=== PATIENT | female | born 1945 | race Caucasian/White ===

== ENCOUNTER 2017-07-13 08:36 | Emergency (ER) | payer MEDICAID | END 2017-07-13 13:00 | disposition home or self-care (01) | LOC: FTE 08:36 | DX: J44.0 Chronic obstructive pulmonary disease with (acute) lower respiratory infection (principal); J32.9 Chronic sinusitis, unspecified; J20.9 Acute bronchitis, unspecified | CPT/HCPCS: 71020; 93005; 99284-25 ==

== ENCOUNTER 2017-09-07 09:51 | Emergency (ER) | payer MEDICAID ==
[2017-09-07] MEDS: TETRACAINE 0.5% 4 ML OPH LEFT EYE (10:48)
== END 2017-09-07 11:15 | disposition home or self-care (01) ==
LOC: FTE 09:51
DX: H10.32 Unspecified acute conjunctivitis, left eye (principal)
CPT/HCPCS: 99283; Z7502

== ENCOUNTER 2017-09-15 08:53 | Emergency (ER) | payer MEDICAID ==
[2017-09-15] MEDS: KETOROLAC 30 MG INJ IM (10:02)
[2017-09-15 10:35] LABS: ADD UMIC NO; UR ASCORBIC ACID NEGATIVE (NEGATIVE); UR BILIRUBIN (Dip) NEGATIVE (NEGATIVE); UR BLOOD (Dip) NEGATIVE (NEGATIVE); UR CLARITY CLEAR (CLEAR); UR COLOR YELLOW (YELLOW); UR GLUCOSE (Dip) NEGATIVE (NEGATIVE); UR KETONES (Dip) NEGATIVE (NEGATIVE); UR LEUKOCYTE ESTERASE (Dip) NEGATIVE Leu/ul (NEGATIVE); UR NITRITE (Dip) NEGATIVE (NEGATIVE); UR SPECIFIC GRAVITY (Dip) 1.015 (1.003-1.030); UR TOTAL PROTEIN (Dip) NEGATIVE (NEGATIVE); UR UROBILINOGEN (Dip) NEGATIVE (NEGATIVE)
== END 2017-09-15 11:12 | disposition home or self-care (01) ==
LOC: FTE 08:53
DX: M54.5 Low back pain (principal)
CPT/HCPCS: 81003; 94644; 96372; 99284-25

== ENCOUNTER 2019-01-27 16:45 | Emergency (ER) | payer MEDICAID ==
[2019-01-27] MEDS: traMADol 50 MG TAB PO (17:48)
== END 2019-01-27 20:23 | disposition home or self-care (01) ==
LOC: FTE 16:45
DX: M79.605 Pain in left leg (principal)
CPT/HCPCS: 73562; 93971; 99284-25